=== PATIENT | male | born 1985 | race Caucasian/White ===

== ENCOUNTER 2022-02-28 16:06 | Emergency (ER) | payer OTHER, SELFPAY ==
--- NOTE | ~2022-02-28 | XR_ITS ---
XR knee RT 3V DATE: 02/28/2022 16:32 INDICATION: Medial right knee pain after twisting knee 2 days ago TECHNIQUE: No Name and standing AP and lateral views COMPARISON: None FINDINGS: Mild to moderate suprapatellar knee joint effusion. No fracture or dislocation, radiopaque intra-articular loose body or chondrocalcinosis. Knee joint sp aces are well preserved. No radiopaque intra-articular loose body or chondrocalcinosis. IMPRESSION: Mild to moderate suprapatellar knee joint effusion Reviewed, dictated and finalized at location B.
[2022-02-28 16:15] VITALS: BP 142/68; PULSE 88; RESP 16; TEMP 37.7; O2SAT 99
--- NOTE | 2022-02-28 16:57 | ED.LOWEXIN ---
HPI - Extremity Injury (Lower) General Chief Complaint: Extremity Injury, Lower Stated Complaint: Knee injury Time Seen by Provider: 02/28/22 16:19 Source: patient Mode of arrival: ambulatory Limitations: no limitations History of Present Illness HPI Narrative: Patient presents today complaining of a right knee injury that was sustained 2 days ago while at work. 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 Since that time he has had severe pain with weightbearing and movement. Denies numbness or tingling in the leg or foot. He is pain-free at rest, but pain increases to 7-04/2010 with movement or walking. He has tried ice with some mild relief, but no [id number] medication. Related Data Allergies Allergy/AdvReac Type Severity Reaction Status Date / Time No Known Allergies Allergy Verified 02/28/22 16:19 Review of Systems Review of Systems: CONSTITUTIONAL: Denies body aches, fever, chills, or sweats. EYES: Denies visual changes, redness, or discharge. ENT: Denies rhinorrhea, congestion, sore throat, or otalgia. CARDIOVASCULAR: Denies chest pain, palpitations, or edema. RESPIRATORY: Denies cough or dyspnea. GASTROINTESTINAL: Denies abdominal pain, nausea, vomiting, or diarrhea. GENITOURINARY: Denies dysuria or hematuria. SKIN: Denies rash, itching, or wounds. MUSCULOSKELETAL: Denies back pain, or myalgia.+ Right knee injury NEUROLOGIC: Denies headache, numbness, tingling, or weakness. PSYCH: Denies depression or anxiety. PMFSH Comments At time of signature, I have reviewed and agree with nursing past medical, surgical, social and family history unless otherwise noted. Please see nursing chart for further information. There is no relevant family history pertinent to the presenting complaint Exam Narrative: GENERAL: Well-appearing, well-nourished, and in no acute distress. HEAD: Normocephalic, atraumatic. EYES: EOMI. No redness or drainage. Conjunctivae normal. ENT: Mucous membranes pink and moist. NECK: Normal AROM. CHEST: No respiratory distress. EXTREMITIES: Right knee: Tenderness to the medial and lateral joint line with effusion noted. Patient does not seem to have bony tenderness about the patella. No tenderness to the patellar tendon. No tenderness to the posterior knee. Patient has pain with full extension and with any flexion. Distal sensation intact. Capillary refill normal. Posterior tibial pulse normal. SKIN: Warm, dry, no rash. Capillary refill normal. Normal skin turgor. NEURO: No focal deficits. Alert and oriented x3. Gait steady. PSYCH: Normal affect. No signs of depression or anxiety. Course Course Level of Care: Express Care Visit Vital Signs Vital signs: Vital Signs Temperature 99.8 F H 02/28/22 16:15 Pulse Rate 88 02/28/22 16:15 Respiratory Rate 16 02/28/22 16:15 Blood Pressure 142/68 H 02/28/22 16:15 Pulse Oximetry 99 02/28/22 16:15 Oxygen Delivery Room Air 02/28/22 16:15 Temperature 99.8 F H 02/28/22 16:15 Pulse Rate 88 02/28/22 16:15 Respiratory Rate 16 02/28/22 16:15 Blood Pressure 142/68 H 02/28/22 16:15 Pulse Oximetry 99 02/28/22 16:15 Oxygen Delivery Room Air 02/28/22 16:15 Reviewed. Pt has been instructed to follow up with his PCP regarding his elevated blood pressure today. MDM - Extremity Injury (Lower) Differential Diagnosis Differential diagnosis: Likely other (Knee strain, joint effusion, fracture, ligamental injury, meniscus tear) Imaging Data Radiologist's impression: ITS Impressions Knee X-Ray 02/28/22 16:44 IMPRESSION: Mild to moderate suprapatellar knee joint effusion Critical Care Time Critical Care Time Critical Care Time: No Discharge Plan Discharge Clinical Impression: Injury of knee, right, Effusion of right knee Patient Disposition: Home, Self-Care Condition: Stable Instruc
== END 2022-02-28 17:12 | disposition home or self-care (01) ==
PROVIDERS: Emergency Provider Nurse Practitioner
DX: S89.91XA Unspecified injury of right lower leg, initial encounter (principal); X50.3XXA Overexertion from repetitive movements, initial encounter; Y99.0 Civilian activity done for income or pay; M25.461 Effusion, right knee
CPT/HCPCS: 73562; 99213; G0463